=== PATIENT | female | born 1945 | race Caucasian/White ===

== ENCOUNTER 2018-10-15 09:02 | Inpatient (IN) | payer MEDICARE ==
[~2018-10-15] VITALS: Ht 162.6 cm; Wt 124.7 kg
[~2018-10-15 09:02] MED LIST: CELE200C PO; DICL100G19 TP; ESCI10TA10 PO; FENO135C PO; LEVO125T PO; SULF500T36 PO
[2018-10-15] MEDS ORDERED: PLEASE ENTER HEIGHT AND WEIGHT MC SCH (09:30)
[2018-10-15] MEDS ORDERED: SODIUM CHLORIDE FLUSH 10ML SYR IVF ONE (09:30)
[2018-10-15 09:41] LABS: BASOPHILS # (AUTO) 0.11 x10^3/uL (0-0.1); BASOPHILS % (AUTO) 1 % (0-1); EOSINOPHILS # (AUTO) 0.24 x10^3/uL (0-0.4); EOSINOPHILS % (AUTO) 3 % (1-7); LYMPHOCYTES # (AUTO) 2.21 x10^3/uL (1-3.4); LYMPHOCYTES % (AUTO) 28 % (22-44); MD NO; MEAN CORPUSCULAR HEMOGLOBIN 30.3 pg (27.0-34.8); MEAN CORPUSCULAR HGB CONC 32.4 g/dL (32.4-35.8); MEAN CORPUSCULAR VOLUME 93.6 fL (80-100); MEAN PLATELET VOLUME 7.9 fL (7.4-10.4); MONOCYTES # (AUTO) 0.83 x10^3/uL (0.2-0.8); MONOCYTES % (AUTO) 11 % (2-9); NEUTROPHILS # (AUTO) 4.48 x10^3/uL (1.8-6.8); NEUTROPHILS % (AUTO) 57 % (42-75); PLATELET COUNT 294 x10^3/uL (130-400); RED BLOOD COUNT 3.86 x10^6/uL (3.82-5.3); RED CELL DISTRIBUTION WIDTH 13.6 % (9.6-15.2)
[2018-10-15 09:44] LABS: MICROSCOPIC NOT IND
[2018-10-15] MEDS ORDERED: MORPHINE SULFATE 4 MG/ML, 1ML ONE (09:45)
[2018-10-15] MEDS ORDERED: ONDANSETRON 2MG/ML, 2ML ONE (09:45)
[2018-10-15 09:50] LABS: CULTURE INDICATED? NO
[2018-10-15 09:53] LABS: ALANINE AMINOTRANSFERASE 37 U/L (12-78); ALBUMIN 2.9 g/dL (3.4-5.0); ANION GAP 5 mmol/L (5-15); CALCIUM 9.4 mg/dL (8.5-10.1); CHLORIDE 104 mmol/L (98-107); CREATININE 0.56 mg/dL (0.55-1.02)
[2018-10-15 09:57] LABS: ALKALINE PHOSPHATASE 118 U/L (45-117); BILIRUBIN,TOTAL 0.2 mg/dL (0.2-1.0); TOTAL PROTEIN 7.1 g/dL (6.4-8.2); TROPONIN I < 0.015 ng/mL (0.000-0.045)
[2018-10-15] MEDS ORDERED: ONDANSETRON 2MG/ML, 2ML IVPush ONE (10:00)
[2018-10-15] MEDS ORDERED: NYSTATIN TOPICAL POWDER 15GM TP PRN (10:00)
[2018-10-15] MEDS ORDERED: MORPHINE SULFATE 4 MG/ML, 1ML IVPush PRN (10:00)
[2018-10-15] MEDS ORDERED: CARV3.122 PO (10:19)
[2018-10-15] MEDS ORDERED: ATOR10TA9 PO (10:19)
[2018-10-15] MEDS ORDERED: METF500T17 PO (10:19)
[2018-10-15] MEDS ORDERED: VALS40TA2 PO (10:19)
[2018-10-15] MEDS ORDERED: GABA300C10 PO (10:19)
[2018-10-15] MEDS ORDERED: AMLO2.5T2 PO (10:19)
[2018-10-15] MEDS ORDERED: HYDR12.517 PO (10:19)
[2018-10-15] MEDS ORDERED: SODIUM CHLORIDE FLUSH 10ML SYR IVF PRN (11:00)
[2018-10-15] MEDS ORDERED: GLUCAGON 1 MG IM PRN (11:30)
[2018-10-15] MEDS ORDERED: DEXTROSE 4 GM TAB.CHEW PO PRN (11:30)
[2018-10-15] MEDS ORDERED: DEXTROSE 50%, 50ML SYRINGE IVPush PRN (11:30)
[2018-10-15] MEDS: HEPARIN 5,000 UNITS/ML, 1ML SQ SCH ×2 (12:00→19:54)
[2018-10-15] MEDS ORDERED: LIDODERM 5% PATCH TD PRN (12:00)
[2018-10-15] MEDS ORDERED: hydrALAzine 20 MG/ML, 1ML IVPush PRN (12:00)
[2018-10-15 12:19] LABS: HEMOGLOBIN A1C 6.7 % (4.2-6.3)
[2018-10-15] MEDS ORDERED: ONDANSETRON ODT 4 MG PO PRN (14:00)
[2018-10-15] MEDS: ACETAMINOPHEN 325 MG TABLET PO PRN ×2 (15:02→23:46)
[2018-10-15 16:00] VITALS: BP 140/79
[2018-10-15] MEDS: INSULIN LISPRO 100 UNITS/ML, PEN SQ-INSULIN SCH ×2 (16:00→21:41)
[2018-10-15] MEDS: OXYcodone/APAP 10/325MG TABLET PO PRN ×2 (17:56→21:41)
[2018-10-15] MEDS ORDERED: CARVEDILOL 3.125 MG TABLET PO SCH (18:00)
[2018-10-15] MEDS ORDERED: FUROSEMIDE 20 MG/2 ML IV ONE ×2 (19:00→20:00)
[2018-10-15 19:17] VITALS: BP 129/67
[2018-10-15] MEDS: ATORVASTATIN 10 MG TABLET PO SCH (21:00)
[2018-10-15] MEDS ORDERED: ATORVASTATIN 10 MG TABLET PO SCH (21:00)
[2018-10-15] MEDS: SODIUM CHLORIDE FLUSH 10ML SYR IVF SCH (21:00)
[2018-10-15] MEDS: GABAPENTIN 400 MG CAPSULE PO SCH (21:30)
[2018-10-15] MEDS: DOXYCYCLINE 100MG TABLET PO SCH (21:31)
[2018-10-16 00:03] VITALS: BP 126/67
[2018-10-16] MEDS: OXYcodone/APAP 10/325MG TABLET PO PRN ×2 (04:03→18:04)
[2018-10-16] MEDS: HEPARIN 5,000 UNITS/ML, 1ML SQ SCH ×3 (04:10→21:25)
[2018-10-16 06:34] VITALS: BP 141/76
[2018-10-16] MEDS: CARVEDILOL 12.5 MG TABLET PO SCH ×2 (06:37→18:04)
[2018-10-16] MEDS: LEVOTHYROXINE 125 MCG TABLET PO SCH (06:38)
[2018-10-16] MEDS: INSULIN LISPRO 100 UNITS/ML, PEN SQ-INSULIN SCH ×4 (07:00→21:00)
[2018-10-16 08:38] VITALS: BP 111/59
[2018-10-16] MEDS ORDERED: HYDROCHLOROTHIAZIDE 12.5 MG CAPSULE PO SCH (09:00)
[2018-10-16] MEDS ORDERED: AMLODIPINE 5 MG TABLET PO SCH (09:00)
[2018-10-16] MEDS ORDERED: VALSARTAN 80 MG TABLET PO SCH (09:00)
[2018-10-16] MEDS: AMLODIPINE 5 MG TABLET PO SCH (09:15)
[2018-10-16] MEDS: DOCUSATE 100 MG CAPSULE PO PRN (09:15)
[2018-10-16] MEDS: GABAPENTIN 400 MG CAPSULE PO SCH ×2 (09:16→21:24)
[2018-10-16] MEDS: VALSARTAN 160 MG TABLET PO SCH (09:16)
[2018-10-16] MEDS: HYDROCHLOROTHIAZIDE 25 MG TABLET PO SCH (09:16)
[2018-10-16] MEDS: DOXYCYCLINE 100MG TABLET PO SCH ×2 (09:16→21:23)
[2018-10-16] MEDS: SODIUM CHLORIDE FLUSH 10ML SYR IVF SCH ×2 (09:17→21:31)
[2018-10-16 14:57] VITALS: BP 120/77
[2018-10-16 15:07] LABS: ANION GAP 6 mmol/L (5-15); CALCIUM 8.6 mg/dL (8.5-10.1); CHLORIDE 102 mmol/L (98-107)
[2018-10-16 18:05] VITALS: BP 115/68
[2018-10-16 20:49] VITALS: BP 114/63
[2018-10-16] MEDS: ATORVASTATIN 10 MG TABLET PO SCH (21:24)
[2018-10-17 02:54] VITALS: BP 122/73
[2018-10-17] MEDS: HEPARIN 5,000 UNITS/ML, 1ML SQ SCH ×3 (03:51→20:30)
[2018-10-17] MEDS: OXYcodone/APAP 10/325MG TABLET PO PRN ×3 (04:23→20:29)
[2018-10-17] MEDS: LEVOTHYROXINE 125 MCG TABLET PO SCH (06:00)
[2018-10-17] MEDS ORDERED: LEVOTHYROXINE 50 MCG TABLET ONE (06:30)
[2018-10-17] MEDS ORDERED: LEVOTHYROXINE 75 MCG TABLET ONE (06:30)
[2018-10-17] MEDS: CARVEDILOL 12.5 MG TABLET PO SCH ×2 (06:32→18:18)
[2018-10-17 06:34] VITALS: BP 111/71
[2018-10-17] MEDS: INSULIN LISPRO 100 UNITS/ML, PEN SQ-INSULIN SCH ×4 (07:40→20:38)
[2018-10-17] MEDS: GABAPENTIN 400 MG CAPSULE PO SCH ×2 (07:40→20:29)
[2018-10-17] MEDS: DOXYCYCLINE 100MG TABLET PO SCH ×2 (07:41→20:29)
[2018-10-17] MEDS: AMLODIPINE 5 MG TABLET PO SCH (07:41)
[2018-10-17] MEDS: VALSARTAN 160 MG TABLET PO SCH (07:41)
[2018-10-17] MEDS: HYDROCHLOROTHIAZIDE 25 MG TABLET PO SCH (07:42)
[2018-10-17] MEDS: DOCUSATE 100 MG CAPSULE PO PRN (07:44)
[2018-10-17] MEDS: SODIUM CHLORIDE FLUSH 10ML SYR IVF SCH ×2 (07:52→20:30)
[2018-10-17] MEDS ORDERED: FUROSEMIDE 20 MG/2 ML IV SCH (09:00)
[2018-10-17 12:22] LABS: ANION GAP 4 mmol/L (5-15); CALCIUM 8.9 mg/dL (8.5-10.1); CHLORIDE 101 mmol/L (98-107); CREATININE 0.55 mg/dL (0.55-1.02)
[2018-10-17 12:25] VITALS: BP 109/51
[2018-10-17] MEDS ORDERED: OMNIPAQUE 350 MG/ML, 150 ML BOTTLE ONE (13:35)
[2018-10-17 18:19] VITALS: BP 116/64
[2018-10-17] MEDS: FUROSEMIDE 20 MG/2 ML IV SCH (20:30)
[2018-10-17] MEDS: ATORVASTATIN 10 MG TABLET PO SCH (20:30)
[2018-10-18] VITALS (8 sets, daily range): BP systolic 98–132; BP diastolic 50–72
[2018-10-18] MEDS: HEPARIN 5,000 UNITS/ML, 1ML SQ SCH ×2 (04:12→11:11)
[2018-10-18] MEDS: OXYcodone/APAP 10/325MG TABLET PO PRN ×3 (04:12→13:50)
[2018-10-18] MEDS: LEVOTHYROXINE 125 MCG TABLET PO SCH (04:12)
[2018-10-18] MEDS: CARVEDILOL 12.5 MG TABLET PO SCH (04:12)
[2018-10-18 05:30] LABS: ANION GAP 7 mmol/L (5-15); CALCIUM 8.8 mg/dL (8.5-10.1); CHLORIDE 100 mmol/L (98-107); CREATININE 0.55 mg/dL (0.55-1.02)
[2018-10-18] MEDS: INSULIN LISPRO 100 UNITS/ML, PEN SQ-INSULIN SCH ×2 (07:47→12:16)
[2018-10-18] MEDS: FUROSEMIDE 20 MG/2 ML IV SCH (09:34)
[2018-10-18] MEDS: GABAPENTIN 400 MG CAPSULE PO SCH (09:34)
[2018-10-18] MEDS: DOXYCYCLINE 100MG TABLET PO SCH (09:34)
[2018-10-18] MEDS: HYDROCHLOROTHIAZIDE 25 MG TABLET PO SCH (09:35)
[2018-10-18] MEDS: SODIUM CHLORIDE FLUSH 10ML SYR IVF SCH (09:35)
[2018-10-18] MEDS ORDERED: VALS160T27 PO (14:00)
[2018-10-18] MEDS ORDERED: CARV6.2512 PO (14:00)
[2018-10-18] MEDS ORDERED: LIDO700A20 TD (14:00)
[2018-10-18] MEDS ORDERED: HYDR12.517 PO (14:00)
[2018-10-18] MEDS ORDERED: INSU100I11 SQ-INSULIN (14:00)
[2018-10-18] MEDS ORDERED: ALPR-475 PO (14:00)
[2018-10-18] MEDS ORDERED: DOCU-131 PO (14:00)
[2018-10-18] MEDS ORDERED: ONDA4TAB13 PO (14:00)
[2018-10-18] MEDS ORDERED: OXYC-432 PO (14:00)
[2018-10-18] MEDS ORDERED: DOXY100T PO (14:00)
[2018-10-18] MEDS ORDERED: CARVEDILOL 6.25 MG TABLET PO SCH (18:00)
[2018-10-18] MEDS ORDERED: VALSARTAN 160 MG TABLET PO SCH (21:00)
[2018-10-19] MEDS ORDERED: HYDROCHLOROTHIAZIDE 12.5 MG CAPSULE PO SCH (09:00)
== END 2018-10-18 16:13 | DRG 291 ==
LOC: ED 09:52 → EDIP 10:31 → 4NOR 11:41
PROVIDERS: ADMIT Internal Medicine; ATTEND Internal Medicine
PROC: 0T9B70Z Drainage of Bladder with Drainage Device, Via Natural or Artificial Opening (ICD-10-PCS; principal; 2018-10-15)
DX: I11.0 Hypertensive heart disease with heart failure (principal); J96.20 Acute and chronic respiratory failure, unspecified whether with hypoxia or hypercapnia; L03.116 Cellulitis of left lower limb; J98.11 Atelectasis; Z68.42 Body mass index [BMI] 45.0-49.9, adult; R62.7 Adult failure to thrive; I50.9 Heart failure, unspecified; R53.81 Other malaise; E66.01 Morbid (severe) obesity due to excess calories; G89.4 Chronic pain syndrome; M19.90 Unspecified osteoarthritis, unspecified site; G62.9 Polyneuropathy, unspecified; R55 Syncope and collapse; E88.09 Other disorders of plasma-protein metabolism, not elsewhere classified; I87.2 Venous insufficiency (chronic) (peripheral); F41.9 Anxiety disorder, unspecified; E03.9 Hypothyroidism, unspecified; E11.9 Type 2 diabetes mellitus without complications
CPT/HCPCS: 36415; 71045; 71275; 80048; 80053; 81003; 82962; 83036; 83880; 84443; 84484; 85025; 85379; 93005; 93306; 93970; 96374; 96375; 99285; G0378; J1644; J2405; Q0162; Q9967; J1815; J1940